=== PATIENT | male | born 1950 | race Caucasian/White ===

== ENCOUNTER 2020-05-10 11:05 | Emergency (ER) | payer MEDICARE, OTHER ==
[~2020-05-10] VITALS: Ht 170.2 cm; Wt 63.5 kg
[2020-05-10] MEDS ORDERED: oxyCODONE SR 10mg (sust. release) tab PO ONE (12:00)
[2020-05-10] MEDS ORDERED: ondansetron 4mg rapidly disintigrating tab PO ONE (12:00)
[2020-05-10] MEDS ORDERED: HYDR-4383 PO (12:15)
[2020-05-10 12:38] VITALS: BP 135/62
== END 2020-05-10 12:41 | disposition home or self-care (01) ==
LOC: ER 11:05
DX: S43.102A Unspecified dislocation of left acromioclavicular joint, initial encounter (principal); Z79.899 Other long term (current) drug therapy; Y08.89XA Assault by other specified means, initial encounter; Y93.9 Activity, unspecified; Y92.89 Other specified places as the place of occurrence of the external cause; Y99.8 Other external cause status
CPT/HCPCS: 73030; 99283